=== PATIENT | male | born 1970 | race African-American/Black ===

== ENCOUNTER 2018-06-22 11:56 | Emergency (ER) | payer OTHER ==
[2018-06-22 12:54] LABS: BASOPHILS % (AUTO) 0.5 % (0.0-5.0); EOSINOPHILS % (AUTO) 0.9 % (0.0-8.0); HEMATOCRIT 42.3 % (42-54); LYMPHOCYTES % (AUTO) 20.1 % (21.0-51.0); MEAN CORPUSCULAR HEMOGLOBIN 32.6 pg (27.0-33.0); MEAN CORPUSCULAR HGB CONC 33.3 g/dL (32.0-36.0); MEAN CORPUSCULAR VOLUME 98.1 fL (79-99); MONOCYTES % (AUTO) 14.4 % (3.0-13.0); NEUTROPHILS % (AUTO) 64.1 % (40.0-77.0); NUCLEATED RED BLOOD CELLS 0.1 % (0.0-0.19); PLATELET COUNT (AUTO) 190 K/uL (130-400); RED BLOOD CELL COUNT(AUTO) 4.31 MIL/uL (4.50-6.20); WHITE BLOOD COUNT (AUTO) 7.6 K/uL (4.8-10.8)
[2018-06-22 13:02] LABS: CREATININE 1.4 mg/dL (0.5-1.5); POTASSIUM 4.1 mmol/L (3.5-5.1)
[2018-06-22] MEDS ORDERED: MORPHINE SULFATE 4 MG/1ML SYG ONE (13:10)
[2018-06-22] MEDS ORDERED: ONDANSETRON HCL 4 MG/2 ML VIAL ONE (13:10)
[2018-06-22] MEDS ORDERED: IOHEXOL-350 75 ML VIAL IV ONE (13:25)
[2018-06-22] MEDS ORDERED: SULFAMETHOX-TMP DS 800/160 TAB ONE (15:09)
[2018-06-22] MEDS ORDERED: CEFTRIAXONE SODIUM 1 GM ONE (15:09)
== END 2018-06-22 15:41 | disposition home or self-care (01) ==
LOC: EDH 11:56
DX: K62.89 Other specified diseases of anus and rectum (principal); K59.00 Constipation, unspecified
CPT/HCPCS: 36415; 74177; 80048; 85025; 96374; 96375; 99285; J0696; J2270; J2405; Q9967

== ENCOUNTER 2018-08-30 13:31 | Emergency (ER) | payer OTHER ==
[~2018-08-30] VITALS: Ht 182.9 cm; Wt 102.5 kg
[2018-08-30] MEDS ORDERED: HYDROCODONE/ACETAMINOPHEN 10/325 MG TAB ONE (14:05)
[2018-08-30] MEDS ORDERED: WATER IV SCH (16:00)
[2018-08-30] MEDS ORDERED: DEXTROSE 5% IV SCH (16:00)
[2018-08-30] MEDS ORDERED: PENICILLIN POTASSIUM IV SCH (16:00)
[2018-08-30 16:27] LABS: BASOPHILS % (AUTO) 0.5 % (0.0-5.0); EOSINOPHILS % (AUTO) 0.5 % (0.0-8.0); HEMATOCRIT 42.4 % (42-54); LYMPHOCYTES % (AUTO) 16.9 % (21.0-51.0); MEAN CORPUSCULAR HEMOGLOBIN 33.1 pg (27.0-33.0); MEAN CORPUSCULAR HGB CONC 33.6 g/dL (32.0-36.0); MEAN CORPUSCULAR VOLUME 98.6 fL (79-99); MONOCYTES % (AUTO) 12.3 % (3.0-13.0); NEUTROPHILS % (AUTO) 69.8 % (40.0-77.0); NUCLEATED RED BLOOD CELLS 0.1 % (0.0-0.19); PLATELET COUNT (AUTO) 217 K/uL (130-400); RED CELL DISTRIBUTION WIDTH 12.2 % (11.0-15.5); WHITE BLOOD COUNT (AUTO) 10.8 K/uL (4.8-10.8)
[2018-08-30 16:35] LABS: CREATININE 1.2 mg/dL (0.5-1.5); POTASSIUM 3.8 mmol/L (3.5-5.1)
[2018-08-30] MEDS ORDERED: MORPHINE SULFATE 4 MG/1ML SYG ONE (16:36)
[2018-08-30] MEDS ORDERED: MORPHINE SULFATE 2 MG/ML 1ML SYG ONE (16:36)
[2018-08-30] MEDS ORDERED: ONDANSETRON HCL 4 MG/2 ML VIAL ONE (16:36)
[2018-08-30 16:44] LABS: ALBUMIN 3.7 g/dL (3.5-5.0); BILIRUBIN,TOTAL 2.4 mg/dL (0.2-1.0); TOTAL PROTEIN, SERUM 7.5 g/dL (6.0-8.3)
== END 2018-08-30 16:55 | disposition short-term general hospital (02) ==
LOC: EDH 13:31
DX: S02.69XA Fracture of mandible of other specified site, initial encounter for closed fracture (principal); M25.511 Pain in right shoulder; F32.9 Major depressive disorder, single episode, unspecified; Z87.891 Personal history of nicotine dependence; W18.39XA Other fall on same level, initial encounter; Y93.01 Activity, walking, marching and hiking; Y92.89 Other specified places as the place of occurrence of the external cause; Y99.8 Other external cause status
CPT/HCPCS: 36415; 70486; 73030; 80053; 85025; 96374; 96375; 99285; J2270; J2405; J2540; J7060